=== PATIENT | female | born 1980 | race African-American/Black ===

== ENCOUNTER 2018-04-16 19:24 | Emergency (ER) | payer OTHER ==
[~2018-04-16] VITALS: Ht 157.5 cm; Wt 145.2 kg
--- NOTE | ~2018-04-16 | EKG ---
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
[~2018-04-16 19:24] MED LIST: GILDESS FE 1-21 EACH PO; LOESTRIN1 EAC1 PO; MAGNESIUM OXID400 MG PO; PROBIOTIC1 EAC1 PO
[2018-04-16 20:17] LABS: ABSOLUTE NEUTROPHILS 2.9 thou/uL (1.4-8.2); EOSINOPHILS 0.4 % (0.0-3.0); LYMPHOCYTES 23.8 % (24.0-44.0); MCH 26.2 pg (26.0-34.0); MCHC 33.2 g/dL (28.0-37.0); MCV 78.8 fL (80.0-100.0); MONOCYTES 6.8 % (1.0-8.0); PLATELET COUNT 259 thou/uL (150-400); RBC 4.57 mil/uL (4.20-5.00); RDW 13.4 % (10.5-14.5); WBC 4.3 thou/uL (4.0-11.0)
[2018-04-16 20:25] LABS: ANION GAP 7 mmol/L (7-16); BUN 7 mg/dL (7-18); CALCIUM 9.8 mg/dL (8.5-10.1); CHLORIDE 103 mmol/L (98-107); CO2 30 mmol/L (21-32); CREATININE 0.9 mg/dL (0.6-1.0); GLUCOSE 96 mg/dL (74-106); POTASSIUM 3.9 mmol/L (3.5-5.1); SODIUM 140 mmol/L (136-145)
[2018-04-16 20:34] LABS: ALBUMIN 3.7 g/dL (3.4-5.0); MAGNESIUM 1.7 mg/dL (1.8-2.4); SGOT 30 U/L (15-37); SGPT 27 U/L (30-65); TOTAL BILIRUBIN 0.3 mg/dL (<0.1-1.0); TOTAL PROTEIN 8.7 g/dL (6.4-8.2); TROPONIN-I <0.06 ng/mL (<0.06)
[2018-04-16] MEDS ORDERED: PROTONIX40 MG PO (21:36)
[2018-04-16 23:03] VITALS: BP 140/95
== END 2018-04-16 23:05 | disposition home or self-care (01) ==
LOC: ER 19:24
PROVIDERS: Emergency Medicine
DX: G43.909 Migraine, unspecified, not intractable, without status migrainosus (principal); K21.9 Gastro-esophageal reflux disease without esophagitis; Z85.71 Personal history of Hodgkin lymphoma

== ENCOUNTER 2019-07-06 18:15 | Emergency (ER) | payer OTHER ==
[~2019-07-06] VITALS: Ht 157.5 cm; Wt 108.9 kg
[~2019-07-06 18:15] MED LIST changes: +PROTONIX40 MG PO
[2019-07-06 18:52] LABS: URINE BILIRUBIN NEGATIVE (Negative); URINE BLOOD NEGATIVE (Negative); URINE CLARITY CLEAR; URINE COLOR YELLOW; URINE GLUCOSE-RANDOM* NEGATIVE (Negative); URINE KETONES NEGATIVE (Negative); URINE LEUKOCYTES-REFLEX NEGATIVE (Negative); URINE NITRITE-REFLEX NEGATIVE (Negative); URINE PROTEIN (DIPSTICK) NEGATIVE (Negative); URINE SPECIFIC GRAVITY 1.015 (1.005-1.035); URINE UROBILINOGEN 0.2 E.U./dl (0.2-1.0)
[2019-07-06] MEDS ORDERED: TOPAMAX 25 MG T25 MG PO (18:55)
[2019-07-06] MEDS ORDERED: AMLODIPINE BESY10 MG PO (18:55)
[2019-07-06 19:19] LABS: HEMATOCRIT 36.7 % (37.0-47.0); HEMOGLOBIN 11.7 gm/dL (12.0-15.0); MCH 25.6 pg (26.0-34.0); MCHC 31.9 g/dL (28.0-37.0); MCV 80.2 fL (80.0-100.0); PLATELET COUNT 264 thou/uL (150-400); RBC 4.57 mil/uL (4.20-5.00); RDW 13.7 % (10.5-14.5); WBC 5.4 thou/uL (4.0-11.0)
[2019-07-06 19:25] LABS: CALCIUM 9.5 mg/dL (8.5-10.1); CREATININE 0.8 mg/dL (0.6-1.0)
[2019-07-06 19:31] LABS: ALBUMIN 3.3 g/dL (3.4-5.0); MAGNESIUM 1.7 mg/dL (1.8-2.4); TOTAL BILIRUBIN 0.2 mg/dL (<0.1-1.0); TOTAL PROTEIN 8.7 g/dL (6.4-8.2)
[2019-07-06 19:43] LABS: ABSOLUTE NEUTROPHILS 2.7 thou/uL (1.4-8.2)
[2019-07-06 19:44] LABS: ANISOCYTOSIS 1+
[2019-07-06 22:48] VITALS: BP 127/72
--- NOTE | 2019-07-07 07:58 | EKG ---
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 07/07/19 0758 1923 22 Greg Guerrero MD, FACC /EPI
== END 2019-07-06 22:49 | disposition home or self-care (01) ==
LOC: ER 18:15
PROVIDERS: Emergency Medicine
DX: R53.81 Other malaise (principal); R53.83 Other fatigue; R79.1 Abnormal coagulation profile; R11.2 Nausea with vomiting, unspecified